=== PATIENT | female | born 1950 | race Caucasian/White ===

== ENCOUNTER → 2017-12-15 | Outpatient (CLI) | payer MEDICARE ==
[2016-01-03 08:54] VITALS: BMI 22.5
[~2017-12-15] MED LIST: ALPR-429 PO; ASPI-757 PO; CALCARB PO; CHOL10005 PO; CHOL200022 PO; DIPH-740 PO; DOCU-416 PO; ESTR-33 PO; ESTR-35 PO; FLU180SY9 IM; FLU45SYR25 IM ONLY; FLUT16SP19 NS; GLUC500T22 PO; HYDR-4309 PO; HYDR25CA13 PO; HYDR25CA83 PO; HYDR2TAB74 PO; HYDR50CA47 PO; LOTE5DRO3 OD; LOTE5DRO3 OU; MAGN296S38 PO; MELA1TAB23 PO; MELO-207 PO; MIRT-22 PO; OMEG500C5 PO; OMEG500C7 PO; OMEP-125 PO; ONDA4TAB97 PO; OXYC-865 PO; PARO-243 PO; PARO40TA88 PO; PNEU0.5D3 IM; SODI45SP NS; TAMS0.4C25 PO; TRAZ-156 PO; TRAZ-163 PO; VIT-7 PO
--- NOTE | 2017-12-28 09:55 | RADIOLOGY IMAGING REPORT ---
FACILITY: [facility] PATIENT NAME: BARRIE BARRIENTOS : [id number] MR: [id number] V: [id number] EXAM DATE: [id number] ORDERING PHYSICIAN: TANA HO TECHNOLOGIST: Jeni Malagon PROCEDURE:LIMITED LEFT BREAST ULTRASOUND COMPARISON:None. INDICATIONS:FURTHER EVALUATION. FINDINGS: In the 2:30 position of the left breast there is a slightly lobular hypoechoic structure with faint acoustic enhancement measuring 4.2 mm in maximum dimension. This may represent a small debris filled cyst and likely accounts for the recent mammographic findings. There is a tiny 2.8 x 4.9 x 1.8 mm cyst in the 1 o'clock position of the left breast. DIAGNOSTIC CATEGORY 3--PROBABLY BENIGN FINDING. RECOMMENDATIONS: SIX MONTH FOLLOW-UP DIAGNOSTIC MAMMOGRAM: LEFT BREAST. SIX MONTH FOLLOW-UP ULTRASOUND: LEFT BREAST. IMPRESSION: Bi-RADS 3: A six month followup left breast ultrasound and left mammogram recommended as detailed on today's left mammogram report. Dictated by: Kelle Murrell M.D. on 12/15/2017 at 14:59 Transcribed by: KELSIE on 12/15/2017 at 16:15 Approved by: Kelle Murrell M.D. on 12/28/2017 at 9:54 [facility]
--- NOTE | 2017-12-28 09:55 | RADIOLOGY IMAGING REPORT ---
FACILITY: [facility] - [place] PATIENT NAME: BARRIE BARRIENTOS : [id number] MR: [id number] V: [id number] EXAM DATE: [id number] ORDERING PHYSICIAN: TANA HO TECHNOLOGIST: Flora Iverson PROCEDURE:LEFT DIGITAL DIAGNOSTIC MAMMOGRAM WITH CAD ASSISTED INTERPRETATION AND 3D BREAST TOMOSYNTHESIS. COMPARISON:Prior mammograms dated 03/18/17, 03/16/17, 04/30/11, 04/09/10 and 11/07/08. INDICATIONS:FURTHER EVALUATION / SIX MONTH FOLLOWUP. FINDINGS: The patient received a left CC view, rolled left CC views, left MLO view and spot compression views in the left CC and MLO projections. There is a focal area of increased density in the upper outer quadrant of the left breast re-identified. This was not seen on mammograms prior to 2016. A left breast ultrasound did demonstrate a slightly lobular hypoechoic nodule with faint acoustic enhancement which may represent a small debris filled cyst in the 2:30 position of the left breast measuring 4.2 mm in diameter. This likely accounts for the mammographic findings. However, a six month followup left mammogram and left ultrasound is recommended for further evaluation. Of note, the patient will be due for an annual mammogram in March of 2018. DIAGNOSTIC CATEGORY 3--PROBABLY BENIGN FINDING. RECOMMENDATIONS: SIX MONTH FOLLOW-UP DIAGNOSTIC MAMMOGRAM: LEFT BREAST. SIX MONTH FOLLOW-UP ULTRASOUND: LEFT BREAST. IMPRESSION: BI-RADS 2: A six month followup left breast ultrasound is recommended and a six month followup left mammogram. However, of note the patient will be due for an annual mammogram in March of 2018. Dictated by: Kelle Murrell M.D. on 12/15/2017 at 14:58 Transcribed by: KELSIE on 12/15/2017 at 16:12 Approved by: Kelle Murrell M.D. on 12/28/2017 at 9:54 [facility]
== END ==
LOC: MAMO 12-13 01:43
PROVIDERS: ATTEND Internal Medicine
DX: Z12.31 Encounter for screening mammogram for malignant neoplasm of breast (principal); Z79.890 Hormone replacement therapy; N63.21 Unspecified lump in the left breast, upper outer quadrant
CPT/HCPCS: 77065